=== PATIENT | female | born 1990 | race African-American/Black ===

== ENCOUNTER 2018-05-07 19:25 | Emergency (ER) | payer OTHER ==
[2018-05-07 19:39] LABS: PLATELET COUNT, AUTOMATED 262 K/uL (150-450)
--- NOTE | 2018-05-07 22:09 | ER Report ---
History and Physical Time Seen By MD: 19:35 Hx. of Stated Complaint: PT STARTED HAVING SLIGHT ABDOMINAL PAIN ABOUT 1 WEEK AGO, SHE THOUGHT IT WAS JUST MENSURAL CRAMPS. TODAY SHE STARTED HAVING INSTENSE RIGHT SIDED ABDOMINAL PAIN. (REESE PITTMAN PA-C) HPI/ROS CHIEF COMPLAINT: Abdominal pain HISTORY OF PRESENT ILLNESS: Patient is a 19-year-old female who presents the ED with a 3 week history of worsening right lower quadrant abdominal pain. She denies any nausea, vomiting, diarrhea. She has had not had any previous abdominal surgeries. She denies any previous pregnancies. She does not believe that she is currently . Patient has not noted any vaginal discharge or bleeding. She states that she has a family history of ovarian cysts and was wondering if this could be the issue. She denies any fever. Patient denies any dysuria, hematuria, increased urinary frequency. REVIEW OF SYSTEMS: Constitutional: No fever, no chills. Eyes: No discharge. ENT: No sore throat. Cardiovascular: No chest pain, no palpitations. Respiratory: No cough, no shortness of breath. Gastrointestinal: See history of present illness. Genitourinary: See history of present illness. Musculoskeletal: No back pain. Skin: No rashes. Neurological: No headache. (REESE PITTMAN PA-C) Allergies: Coded Allergies: No Known Drug Allergies (Unverified , 05/07/18) Home Meds Active Scripts Hydrocodone Bit/Acetaminophen (HYDROCODON-ACETAMINOPHEN 5-325) 1 Each Tablet, 1 EACH PO Q4H Y for PAIN, #10 TAB 0 Refills Prov:ARON MENJIVAR MD 05/08/18 Reviewed Nurses Notes: Yes Old Medical Records Reviewed: Yes (REESE PITTMAN PA-C) Hx Alcohol Use: Yes (SOCIAL ) (REESE PITTMAN PA-C) Constitutional Vital Sign - Last 24 Hours 05/07/18 05/07/18 05/07/18 05/07/18 19:26 20:00 20:15 20:30 Temp 98.5 Pulse 102 121 84 ??? Resp 16 B/P (MAP) 139/81 132/90 (104) 125/86 (99) Pulse Ox 97 98 98 97 O2 Delivery Room Air 05/07/18 05/07/18 05/07/18 05/07/18 21:30 21:45 22:00 22:15 Pulse 83 93 88 90 B/P (MAP) 112/72 (85) 112/72 (85) Pulse Ox 98 99 98 98 05/07/18 05/07/18 05/07/18 05/07/18 22:30 22:45 23:00 23:35 Pulse 95 103 83 B/P (MAP) 120/79 (93) 118/78 (91) 116/74 (88) Pulse Ox 95 97 98 05/07/18 23:45 Pulse 101 Pulse Ox 95 [facility] Physical Exam General Appearance: The patient is alert, has no immediate need for airway protection and no signs of toxicity. Patient appears to be no acute distress. Eyes: Pupils equal and round no pallor or injection. ENT, Mouth: Mucous membranes are moist. Respiratory: There are no retractions, lungs are clear to auscultation. Cardiovascular: Regular rate and rhythm. Gastrointestinal: There is right lower quadrant tenderness with palpation. No rebound or guarding present. Normal bowel sounds in all 4 quadrants. Skin: Warm and dry, no rashes. Musculoskeletal: Neck is supple non tender. Extremities are nontender, nonswollen and have full range of motion. DIFFERENTIAL DIAGNOSIS: After history and physical exam differential diagnosis was considered for abdominal pain including but not limited to appendicitis, cholecystitis, gastritis and urinary tract infection. (REESE PITTMAN PA-C) Medical Decision Making Data Points Result Diagram: 05/07/18192905/07/181929 Laboratory Hematology Test 05/07/18 19:25 05/07/18 19:30 Urine Color Yellow Urine Clarity Clear Urine pH 6.0 pH (4.8-9.5) Urine Specific [place] 1.011 Urine Protein Negative mg/dL (NEGATIVE) Urine Glucose (UA) Negative mg/dL (NEGATIVE) Urine Ketones Negative mg/dL (NEGATIVE) Urine Blood Negative (NEGATIVE) Urine Nitrite Negative (NEGATIVE) Urine Bilirubin Negative (NEGATIVE) Urine Urobilinogen Negative mg/dL (0.2-1.9) Urine Leukocyte Esterase Small (NEGATIVE) Urine RBC 1 /HPF (0-2/HPF) Urine WBC 2 /HPF (0-5/HPF) Urine Squamous Epithelial Cells Many /LPF (</=FEW) Urine Bacteria Few /HPF (NONE-FEW) Urine Mucus Few /HPF (NONE-FEW) Red Blood Count 4.29 M/uL (4.17-5.56) Mean Corpuscular Volume 88.5 fL (80.0-96.0) Mean Corpuscular Hemoglobin 30.7 pg (26.0-33.0) Mean Corpuscular Hemoglobin Concent 34.7 g/dL (32.0-36.0) Red Cell Distribution Width 14.3 % (11.5-14.5) Mean Platelet Volume 8.1 fL (7.2-11.1) Neutrophils (%) (Auto) 62.9 % (39.4-72.5) Lymphocytes (%) (Auto) 27.4 % (17.6-49.6) Monocytes (%) (Auto) 7.4 % (4.1-12.4) Eosinophils (%) (Auto) 2.0 % (0.4-6.7) Basophils (%) (Auto) 0.3 % (0.3-1.4) Nucleated RBC Relative Count (auto) 0.0 /100WBC Neutrophils # (Auto) 8.9 K/uL (2.0-7.4) Lymphocytes # (Auto) 3.9 K/uL (1.3-3.6) Monocytes # (Auto) 1.0 K/uL (0.3-1.0) Eosinophils # (Auto) 0.3 K/uL (0.0-0.5) Basophils # (Auto) 0.0 K/uL (0.0-0.1) Nucleated RBC Absolute Count (auto) 0.00 K/uL Urine HCG, Qualitative Positive (NEGATIVE) Sodium Level 137 mmol/L (137-145) Potassium Level 3.5 mmol/L (3.5-5.0) Chloride Level 101 mmol/L (98-107) Carbon Dioxide Level 25 mmol/L (22-31) Blood Urea Nitrogen 10 mg/dl (7-18) Creatinine 0.70 mg/dl (0.52-1.04) Glomerular Filtration Rate Calc > 60.0 Random Glucose 86 mg/dl (75-110) Calcium Level 9.4 mg/dl (8.4-10.2) Total Bilirubin 0.3 mg/dl (0.2-1.3) Aspartate Amino Transf (AST/SGOT) 13 U/L (0-35) Alanine Aminotransferase (ALT/SGPT) 11 U/L (0-56) Alkaline Phosphatase 51 U/L (0-126) Total Protein 7.1 g/dl (6.3-8.2) Albumin 4.2 g/dl (3.5-5.0) Lipase 129 U/L (23-300) Human Chorionic Gonadotropin, Quant 49388 mIU/ml Chemistry Test 05/07/18 19:25 05/07/18 19:30 Urine Color Yellow Urine Clarity Clear Urine pH 6.0 pH (4.8-9.5) Urine Specific [place] 1.011 Urine Protein Negative mg/dL (NEGATIVE) Urine Glucose (UA) Negative mg/dL (NEGATIVE) Urine Ketones Negative mg/dL (NEGATIVE) Urine Blood Negative (NEGATIVE) Urine Nitrite Negative (NEGATIVE) Urine Bilirubin Negative (NEGATIVE) Urine Urobilinogen Negative mg/dL (0.2-1.9) Urine Leukocyte Esterase Small (NEGATIVE) Urine RBC 1 /HPF (0-2/HPF) Urine WBC 2 /HPF (0-5/HPF) Urine Squamous Epithelial Cells Many /LPF (</=FEW) Urine Bacteria Few /HPF (NONE-FEW) Urine Mucus Few /HPF (NONE-FEW) White Blood Count 14.1 k/uL (4.5-11.0) Red Blood Count 4.29 M/uL (4.17-5.56) Hemoglobin 13.2 g/dL (12.0-16.0) Hematocrit 38.0 % (34.0-47.0) Mean Corpuscular Volume 88.5 fL (80.0-96.0) Mean Corpuscular Hemoglobin 30.7 pg (26.0-33.0) Mean Corpuscular Hemoglobin Concent 34.7 g/dL (32.0-36.0) Red Cell Distribution Width 14.3 % (11.5-14.5) Platelet Count 262 K/uL (150-450) Mean Platelet Volume 8.1 fL (7.2-11.1) Neutrophils (%) (Auto) 62.9 % (39.4-72.5) Lymphocytes (%) (Auto) 27.4 % (17.6-49.6) Monocytes (%) (Auto) 7.4 % (4.1-12.4) Eosinophils (%) (Auto) 2.0 % (0.4-6.7) Basophils (%) (Auto) 0.3 % (0.3-1.4) Nucleated RBC Relative Count (auto) 0.0 /100WBC Neutrophils # (Auto) 8.9 K/uL (2.0-7.4) Lymphocytes # (Auto) 3.9 K/uL (1.3-3.6) Monocytes # (Auto) 1.0 K/uL (0.3-1.0) Eosinophils # (Auto) 0.3 K/uL (0.0-0.5) Basophils # (Auto) 0.0 K/uL (0.0-0.1) Nucleated RBC Absolute Count (auto) 0.00 K/uL Urine HCG, Qualitative Positive (NEGATIVE) Glomerular Filtration Rate Calc > 60.0 Calcium Level 9.4 mg/dl (8.4-10.2) Total Bilirubin 0.3 mg/dl (0.2-1.3) Aspartate Amino Transf (AST/SGOT) 13 U/L (0-35) Alanine Aminotransferase (ALT/SGPT) 11 U/L (0-56) Alkaline Phosphatase 51 U/L (0-126) Total Protein 7.1 g/dl (6.3-8.2) Albumin 4.2 g/dl (3.5-5.0) Lipase 129 U/L (23-300) Human Chorionic Gonadotropin, Quant 29344 mIU/ml Urinalysis Test 05/07/18 19:25 05/07/18 19:30 Urine Color Yellow Urine Clarity Clear Urine pH 6.0 pH (4.8-9.5) Urine Specific [place] 1.011 Urine Protein Negative mg/dL (NEGATIVE) Urine Glucose (UA) Negative mg/dL (NEGATIVE) Urine Ketones Negative mg/dL (NEGATIVE) Urine Blood Negative (NEGATIVE) Urine Nitrite Negative (NEGATIVE) Urine Bilirubin Negative (NEGATIVE) Urine Urobilinogen Negative mg/dL (0.2-1.9) Urine Leukocyte Esterase Small (NEGATIVE) Urine RBC 1 /HPF (0-2/HPF) Urine WBC 2 /HPF (0-5/HPF) Urine Squamous Epithelial Cells Many /LPF (</=FEW) Urine Bacteria Few /HPF (NONE-FEW) Urine Mucus Few /HPF (NONE-FEW) Urine HCG, Qualitative Positive (NEGATIVE) (ARON MENJIVAR MD) EKG/Imaging Imaging Transvaginal US: IMPRESSION: 1. Living 6 week 4 day intrauterine gestation with LORA 12/27/2018, 6 days ahead of the LORA based on LMP. 2. Small amount of free fluid in the right adnexum. 3. The left ovary is not identified. Report Dictated By: Nolvia Vásquez at 05/07/2018 10:19 PM Report E-Signed By: Nolvia Vásquez at 05/07/2018 10:26 PM Abdomen US: IMPRESSION: 1. Neither a normal nor abnormal appendix is identified. Report Dictated By: Nolvia Vásquez at 05/07/2018 10:26 PM Report E-Signed By: Nolvia Vásquez at 05/07/2018 10:[address] abdomen/pelvis pending (REESE PITTMAN PA-C) Imaging ABDOMEN/PELVIS WITH CONTRAST HISTORY: Right lower quadrant pain and leukocytosis. Evaluate for appendicitis. Patient is . COMPARISON: Pelvic ultrasound and right lower quadrant ultrasound earlier same day. TECHNIQUE: Axial images were obtained from the lung bases through the symphysis pubis with intravenous contrast. Sagittal and coronal reformats were performed. One of the following dose optimization techniques was utilized in the performance of this exam: Automated exposure control; adjustment of the mA and/ or kV according to the patient's size; or use of an iterative reconstruction technique. Specific details can be referenced in the facility's radiology CT exam operational policy. CONTRAST: 75 mm IV [id number]. FINDINGS: Lower chest: There are calcified granulomas in the right middle lobe. There are several tiny adjacent pulmonary nodules in the right middle lobe, the largest measuring 2 mm average size (image 1). There are calcified right hilar lymph nodes, compatible with prior granulomatous disease. Liver: There is a too small to characterize low attenuating lesion in segment II (image 27), statistically likely to represent a benign cyst or hemangioma. There is a calcified granuloma in segment Suzanne. Gallbladder/biliary: Normal. Pancreas: Normal. Spleen: There are calcified granulomas. Spleen is normal in size. Adrenals: Normal. Kidneys/ureters/bladder: Normal. GI/mesentery/peritoneal cavity: There is no bowel obstruction. There is no wall thickening or pericolonic stranding. The appendix is normal. No free air. Small amount of simple free fluid in the right pelvic cul-de-sac and adjacent to the right ovary. Vessels: No aneurysm or significant atherosclerotic disease. No dissection. Nodes: Normal. Pelvis: There are phleboliths. There is a thick-walled 2.5 cm corpus pseudocyst in the right ovary. Left ovary is normal. There is a gestational sac within the uterus. Bones/vertebra/soft tissues: Normal. IMPRESSION: 1. Normal appendix. 2. Gravid uterus. 3. Right corpus luteal cyst with small amount of simple free fluid in the right adnexum and pelvic cul-de-sac. 4. Right middle lobe pulmonary nodules; the largest measuring 2 mm average size. Current Fleischner Society recommendations for incidental <6mm pulmonary nodule (average of long and short axis) on incomplete thoracic CT scan: No further investigation is recommended given the estimated low risk of malignancy. Yousif H, Arlin D, Geovanny J, et al. Guidelines for management of small pulmonary nodules detected on CT images: from the Fleischner society 2017. Small incomplete Report Dictated By: Nolvia Vásquez at 05/08/2018 12:06 AM (ARON MENJIVAR MD) ED Course/Re-evaluation ED Course Will obtain labs and imaging. 05/07/2018 10:56:55 pm - discussed labs and ultrasound with patient. She does have some leukocytosis. She does have an intrauterine that is about 6 weeks and 4 days. She has no other pelvic reason for her abdominal pain. Patient continues to have right lower quadrant pain and some guarding noted on her exam now. She is asking for pain medications. Discussed risk of narcotic medication with her during . She would like to try ice some medication. Will give patient 2 mg IV morphine and 25 mg IV Phenergan. This patient with Dr. Christianne ED due to fact the patient does need additional imaging to rule out appendicitis. Discussed possible imaging with the patient and she would like to do a CT scan of her abdomen and pelvis. Discussed the risks with her during for the fetus. Will transfer care of patient to Dr. Christianne ED at 10:58 PM. There is abdomen/pelvis CT pending. Decision to Disposition Date: May 07, 2018 (REESE PITTMAN PA-C) ED Course I assumed care of this patient from our PA Manny Pittman at the end of his shift. CT scan results are negative for acute process, no sign of appendicitis. Reviewed this with the patient. See instructions below. Decision to Disposition Date: May 08, 2018 Decision to Disposition Time: 00:41 (ARON MENJIVAR MD) Depart Departure Latest Vital Signs Vital Signs Date Time Temp Pulse Resp B/P (MAP) Pulse Ox O2 Delivery O2 Flow Rate FiO2 05/07/18 23:45 101 95 05/07/18 23:35 116/74 (88) 05/07/18 19:26 98.5 16 Room Air (ARON MENJIVAR MD) Impression: Primary Impression: Additional Impression: Right lower quadrant abdominal pain Condition: Improved Disposition: HOME OR SELF-CARE New Scripts Hydrocodone Bit/Acetaminophen (HYDROCODON-ACETAMINOPHEN 5-325) 1 Each Tablet 1 EACH PO Q4H Y for PAIN, #10 TAB 0 Refills Prov: ARON MENJIVAR MD 05/08/18 Patient Instructions: Acute Abdominal Pain (ED), First Trimester (ED) Additional Instructions: You can take Tylenol as needed for pain. You can take Lortab 5/325, one every 4 hours as needed for severe pain and while not driving. If needed, you can take Ibuprofen for pain as well. Follow-up with your doctor in the next 5-7 days. Problem Qualifiers Primary Impression: Weeks of gestation: less than 8 weeks Qualified Codes: Z3A.01 - Less than 8 weeks gestation of REESE PITTMAN PA-C May 07, 2018 22:08 ARON MENJIVAR MD May 08, 2018 00:31
--- NOTE | 2018-05-07 22:30 | RADIOLOGY IMAGING REPORT ---
FACILITY: PATIENT NAME: Eric Valladares : 1990 MR: [id number] V: [id number] EXAM DATE: ORDERING PHYSICIAN: REESE PITTMAN TECHNOLOGIST: Location: [facility] Patient: Eric Valladares : 1990 Visit/Account:[id number] Date of Sevice: 05/07/2018 OB TRANSVAGINAL HISTORY: . Right lower quadrant pain. Evaluate for ectopic. COMPARISON: No comparison. Concurrent right lower quadrant ultrasound. TECHNIQUE: Endovaginal imaging was performed for assessment of the fetus and maternal pelvic struc tures. FINDINGS: Gestational sac: Intrauterine and unremarkable. Yolk sac: Visualized. pole: 6 mm. cardiac activity: Regular at 121-129 bpm. Estimated gestational age: 6 weeks 4 days. Estimated age based on LMP of 03/27/2018: 5 weeks 5 days, corresponding to LORA of 01/02/2019. Subchorionic hemorrhage: None. Uterus: Gravid, otherwise unremarkable. Maternal ovaries and adnexa: Right: The right ovary is normal in echotexture. It measures 4.7 x 2.4 x 2.1 cm. It contains a t hick-walled, 2.2 cm corpus luteal cyst that measures. There is normal ovarian venous and arterial anthony w. There is a small amount of free fluid in the right adnexum. Left: The left ovary is not identified. The left adnexum is normal. Free pelvic fluid: Small amount in the right adnexum. IMPRESSION: 1. Living 6 week 4 day intrauterine gestation with LORA 12/27/2018, 6 days ahead of the LORA based on LMP . 2. Small amount of free fluid in the right adnexum. 3. The left ovary is not identified. Report Dictated By: Nolvia Vásquez at 05/07/2018 10:19 PM Report E-Signed By: Nolvia Vásquez at 05/07/2018 10:26 PM WSN:[id number]
--- NOTE | 2018-05-07 22:31 | RADIOLOGY IMAGING REPORT ---
FACILITY: [facility] PATIENT NAME: Eric Valladares : 1990 MR: [id number] V: [id number] EXAM DATE: ORDERING PHYSICIAN: REESE PITTMAN TECHNOLOGIST: Location: [facility] [place] Patient: Eric Valladares : 1990 Visit/Account:[id number] Date of Sevice: 05/07/2018 RIGHT LOWER QUADRANT HISTORY: . Right lower quadrant pain for 2 weeks, worsening. COMPARISON: None. TECHNIQUE: Right lower quadrant ultrasound was performed with graded compression. FINDINGS: Neither a normal nor abnormal appendix is identified. Gas and stool-filled bowel are visual ized. No appreciable free fluid. IMPRESSION: 1. Neither a normal nor abnormal appendix is identified. Report Dictated By: Nolvia Vásquez at 05/07/2018 10:26 PM Report E-Signed By: Nolvia Vásquez at 05/07/2018 10:27 PM WSN:[id number]
[2018-05-07] MEDS ORDERED: MORPHINE 2 MG/ML SYR IVP ONE (22:40)
[2018-05-07] MEDS ORDERED: PROMETHAZINE 25 MG/ML 1 ML AMP IVP ONE (22:40)
[2018-05-07] MEDS ORDERED: IOPAMIDOL 76% 75 ML INFUS BTL 75 ML ONE (23:15)
[2018-05-07 23:35] VITALS: BP 116/74
--- NOTE | 2018-05-08 00:30 | RADIOLOGY IMAGING REPORT ---
FACILITY: [facility] PATIENT NAME: Eric Valladares : 1990 MR: [id number] V: [id number] EXAM DATE: ORDERING PHYSICIAN: REESE PITTMAN TECHNOLOGIST: Location: [facility] [place] Patient: Eric Valladares : 1990 Visit/Account:[id number] Date of Sevice: 05/07/2018 ABDOMEN/PELVIS WITH CONTRAST HISTORY: Right lower quadrant pain and leukocytosis. Evaluate for appendicitis. Patient is . COMPARISON: Pelvic ultrasound and right lower quadrant ultrasound earlier same day. TECHNIQUE: Axial images were obtained from the lung bases through the symphysis pubis with intravenou s contrast. Sagittal and coronal reformats were performed. One of the following dose optimization techniques was utilized in the performance of this exam: Autom ated exposure control; adjustment of the mA and/or kV according to the patient's size; or use of an i terative reconstruction technique. Specific details can be referenced in the facility's radiology CT exam operational policy. CONTRAST: 75 mm IV Isovue-370. FINDINGS: Lower chest: There are calcified granulomas in the right middle lobe. There are several tiny adjacent pulmonary nodules in the right middle lobe, the largest measuring 2 mm average size (image 1). There are calcified right hilar lymph nodes, compatible with prior granulomatous disease. Liver: There is a too small to characterize low attenuating lesion in segment II (image 27), statisti melecio likely to represent a benign cyst or hemangioma. There is a calcified granuloma in segment Suzanne. Gallbladder/biliary: Normal. Pancreas: Normal. Spleen: There are calcified granulomas. Spleen is normal in size. Adrenals: Normal. Kidneys/ureters/bladder: Normal. GI/mesentery/peritoneal cavity: There is no bowel obstruction. There is no wall thickening or pericol onic stranding. The appendix is normal. No free air. Small amount of simple free fluid in the right p elvic cul-de-sac and adjacent to the right ovary. Vessels: No aneurysm or significant atherosclerotic disease. No dissection. Nodes: Normal. Pelvis: There are phleboliths. There is a thick-walled 2.5 cm corpus pseudocyst in the right ovary. L eft ovary is normal. There is a gestational sac within the uterus. Bones/vertebra/soft tissues: Normal. IMPRESSION: 1. Normal appendix. 2. Gravid uterus. 3. Right corpus luteal cyst with small amount of simple free fluid in the right adnexum and pelvic cu l-de-sac. 4. Right middle lobe pulmonary nodules; the largest measuring 2 mm average size. Current Fleischner S ociety recommendations for incidental <6mm pulmonary nodule (average of long and short axis) on incom plete thoracic CT scan: No further investigation is recommended given the estimated low risk of malignancy. Yousif H, Arlin D, Geovanny J, et al. Guidelines for management of small pulmonary nodules detected on CT images: from the Fleischner society 2017. Small incomplete Report Dictated By: Nolvia Vásquez at 05/08/2018 12:06 AM Report E-Signed By: Nolvia Vásquez at 05/08/2018 12:25 AM WSN:[id number]
[2018-05-08] MEDS ORDERED: ACET/HYDROC 5/325MG TH ER ONLY 2 TAB/BOTTLE PO ONE (00:40)
[2018-05-08] MEDS ORDERED: LOR5/325 PO (00:42)
== END 2018-05-08 00:53 | disposition home or self-care (01) ==
LOC: ER 19:59
DX: R10.31 Right lower quadrant pain (principal); Z33.1 Pregnant state, incidental; Z3A.01 Less than 8 weeks gestation of pregnancy
CPT/HCPCS: 74177; 76705; 76817; 81001; 81025; 83690; 84702; 85025; 96374; 96375; 99284; J2270; J2550; Q9967; 82040; 82247; 82310; 82374; 82435; 82565; 82947; 84075; 84132; 84155; 84295; 84450; 84460; 84520